=== PATIENT | male | born 1990 | race Caucasian/White ===

== ENCOUNTER 2017-03-15 12:43 | Day surgery (SDC) | payer BC ==
[~2017-03-15] VITALS: Ht 198.1 cm; Wt 108.5 kg
[~2017-03-15 12:43] MED LIST: BUPIVACAINE/PF 0.5% ONE; EPINEPHRINE 1 MG/ML, 1ML ONE; LIDOCAINE/PF 1%, 30ML ONE
[2017-03-15 13:20] VITALS: BP 118/90
[2017-03-15] MEDS ORDERED: PROBIOTIC PO (13:20)
[2017-03-15] MEDS ORDERED: PSYLLIUM HUSK PO (13:20)
[2017-03-15] MEDS ORDERED: CREATININE PO (13:20)
[2017-03-15] MEDS ORDERED: THEANINE PO (13:20)
[2017-03-15] MEDS ORDERED: LACTATED RINGERS 1,000 ML IV SCH (13:26)
[2017-03-15] MEDS ORDERED: FENTANYL PF 100 MCG/2ML ONE ×3 (13:36→14:43)
[2017-03-15] MEDS ORDERED: MIDAZOLAM 1 MG/ML, 2ML ONE (13:36)
[2017-03-15] MEDS ORDERED: PROPOFOL 10 MG/ML, 20ML ONE (13:57)
[2017-03-15] MEDS ORDERED: CEFAZOLIN 1,000 MG ONE (13:57)
[2017-03-15] MEDS ORDERED: HYDROmorphone 1 MG/ML, 1ML IV PRN (14:30)
[2017-03-15] MEDS ORDERED: ONDANSETRON 2MG/ML, 2ML IVPush PRN (14:30)
[2017-03-15] MEDS ORDERED: OXYcodone 5 MG/5 ML ORAL.SOL UDC PO PRN (14:30)
[2017-03-15] MEDS ORDERED: MEPERIDINE/PF 25MG/0.5ML IVPush PRN (14:30)
[2017-03-15] MEDS ORDERED: ACETAMINOPHEN 650 MG/20.3 ML UDC ONE (14:43)
[2017-03-15] MEDS ORDERED: OXYcodone 5 MG/5 ML ORAL.SOL UDC ONE (14:43)
[2017-03-15] MEDS: ACETAMINOPHEN 325 MG TABLET PO PRN (14:45)
[2017-03-15] MEDS: FENTANYL PF 100 MCG/2ML IV PRN ×2 (14:48→15:12)
== END 2017-03-15 15:30 ==
LOC: OUT 12:43
PROVIDERS: ATTEND Orthopaedic Surgery
DX: S83.231A Complex tear of medial meniscus, current injury, right knee, initial encounter (principal); S83.281A Other tear of lateral meniscus, current injury, right knee, initial encounter; M79.5 Residual foreign body in soft tissue; M94.261 Chondromalacia, right knee; X58.XXXA Exposure to other specified factors, initial encounter; Y93.89 Activity, other specified; Y92.89 Other specified places as the place of occurrence of the external cause; Y99.8 Other external cause status
CPT/HCPCS: 29880; J0171; J0690; J2250; J2704; J3010; J3490; J7120